=== PATIENT | female | born 1970 | race Caucasian/White ===

== ENCOUNTER 2019-12-25 05:17 | Day surgery (SDC) | payer OTHER ==
[~2019-12-25] VITALS: Ht 165.1 cm; Wt 129.1 kg
[~2019-12-25 05:17] MED LIST: CYCLOPENTOLATE HCL 1% 2 ML OPHTHALMIC SOLUTION ONE; KETOROLAC TROMETHAMINE 0.5% 5 ML OPHTHALMIC SOLUTION ONE; MOXIFLOXACIN HCL 0.5% 3 ML OPHTHALMIC SOLUTION ONE; PHENYLEPHRINE HCL 2.5% 2 ML OPHTHALMIC SOLUTION ONE; RINGERS SOLUTION,LACTATED 500 ML IV ONE; TETRACAINE HCL/PF 0.5% 4 ML OPHTHALMIC SOLUTION ONE; TROPICAMIDE 1% 2 ML OPHTHALMIC SOLUTION ONE
[2019-12-25] MEDS ORDERED: BALANCED SALT 15 ML OPHTHALMIC IRRIG.SOLN IO ONE (05:18)
[2019-12-25] MEDS ORDERED: MIDAZOLAM HCL 2 MG/2 ML VIAL IVP ONE (05:18)
[2019-12-25] MEDS ORDERED: FentaNYL CITRATE-PF 100 MCG/2 ML VIAL IVP ONE (05:18)
[2019-12-25] MEDS ORDERED: HYALURONATE SODIUM 12 MG/ML 0.8 ML SYRINGE IO ONE (05:18)
[2019-12-25] MEDS ORDERED: RINGERS SOLUTION,LACTATED 500 ML IV ONE (05:30)
[2019-12-25] MEDS ORDERED: BALANCED SALT 15 ML OPHTHALMIC IRRIG.SOLN ONE (05:38)
[2019-12-25] MEDS ORDERED: LIDOCAINE/PF 1% 2 ML VIAL ONE (05:38)
[2019-12-25] MEDS ORDERED: NEOMYCIN/POLYMYXIN B/DEXAMETH 3.5 GM OPHTHALMIC OINTMENT ONE (05:38)
[2019-12-25] MEDS ORDERED: POVIDONE-IODINE 10% 15 ML SOLUTION UD ONE (05:38)
[2019-12-25] MEDS ORDERED: PrednisoLONE ACETATE 1% 5 ML OPHTHALMIC SUSPENSION ONE (05:42)
[2019-12-25 06:05] LABS: COVID AG,FIA SOURCE NASOPHARYNGEAL
[2019-12-25] MEDS: KETOROLAC TROMETHAMINE 0.5% 5 ML OPHTHALMIC SOLUTION OD SCH ×3 (07:03→07:14)
[2019-12-25] MEDS: TETRACAINE HCL/PF 0.5% 4 ML OPHTHALMIC SOLUTION OD SCH ×3 (07:03→07:14)
[2019-12-25] MEDS: CYCLOPENTOLATE HCL 1% 2 ML OPHTHALMIC SOLUTION OD SCH ×3 (07:04→07:14)
[2019-12-25] MEDS: MOXIFLOXACIN HCL 0.5% 3 ML OPHTHALMIC SOLUTION OD SCH ×3 (07:04→07:14)
[2019-12-25] MEDS: PHENYLEPHRINE HCL 2.5% 2 ML OPHTHALMIC SOLUTION OD SCH ×3 (07:04→07:14)
[2019-12-25] MEDS: TROPICAMIDE 1% 2 ML OPHTHALMIC SOLUTION OD SCH ×3 (07:04→07:15)
[2019-12-25] MEDS ORDERED: BUME1TAB34 PO (07:11)
[2019-12-25] MEDS ORDERED: POTA20TA83 PO (07:11)
[2019-12-25] MEDS ORDERED: LISI-660 PO (07:11)
[2019-12-25] MEDS ORDERED: ASPI-728 PO (07:11)
[2019-12-25] MEDS ORDERED: ATOR40TA28 PO (07:11)
[2019-12-25] MEDS ORDERED: METO25 PO (07:11)
== END 2019-12-25 08:35 | disposition home or self-care (01) ==
LOC: SURGERY 05:17
PROVIDERS: ATTEND Ophthalmology
DX: H25.11 Age-related nuclear cataract, right eye (principal); E78.00 Pure hypercholesterolemia, unspecified; E66.01 Morbid (severe) obesity due to excess calories; I10 Essential (primary) hypertension; Z86.73 Personal history of transient ischemic attack (TIA), and cerebral infarction without residual deficits; Z20.828 Contact with and (suspected) exposure to other viral communicable diseases
CPT/HCPCS: 66984; 87426; 93005; C9803; J2250; J3010; J3490 ×2; J7120; V2632